=== PATIENT | male | born 1950 | race Caucasian/White ===

== ENCOUNTER 2017-08-29 23:12 | Inpatient (IN) | payer OTHER ==
[~2017-08-29] VITALS: Ht 193 cm; Wt 117.5 kg
[2017-08-29] MEDS ORDERED: MORPHINE SULFATE 2 MG/ML SYR IV STA (23:34)
[2017-08-29] MEDS ORDERED: ONDANSETRON HCL INJ 2 MG/ML VIAL IV STA (23:34)
[2017-08-29] MEDS ORDERED: SODIUM CHLORIDE 0.9% 500ML 500 ML IV ONE (23:45)
[2017-08-29 23:59] LABS: BILIRUBIN,URINE NEGATIVE (NEGATIVE); KETONES,URINE TRACE (NEGATIVE); LEUKOCYTE ESTERASE ,URINE TRACE (NEGATIVE); NITRITE,URINE NEGATIVE (NEGATIVE); URINE UROBILINOGEN 1 mg/dL (0.2 - 1)
[2017-08-30] VITALS (7 sets, daily range): BP systolic 93–119; BP diastolic 69–84
[2017-08-30] LABS: BASOPHILS # (AUTO) 0.1 (0.0-0.1); BASOPHILS % 0.4 % (0.0-1.0); EOSINOPHILS # (AUTO) 0.2 (0.0-0.4); HEMATOCRIT 47.2 % (38.2-49.6); HEMOGLOBIN 16.1 g/dL (14.0-18.0); LYMPHOCYTES # (AUTO) 1.9 (1.0-3.2); MEAN CORPUSCULAR HEMOGLOBIN 28.9 pg (28-32); MEAN CORPUSCULAR HGB CONC 34.1 g/dL (31-35); MEAN CORPUSCULAR VOLUME 84.7 fL (81-99); MONOCYTES # (AUTO) 1.3 (0.2-0.8); MONOCYTES % 8.1 % (4.4-11.3); NEUTROPHILS # (AUTO) 12.1 (2.1-6.9); PLATELET COUNT 227 x10e3/uL (140-360); RED BLOOD COUNT 5.57 x10e6/uL (4.3-5.7); RED CELL DISTRIBUTION WIDTH 14.6 % (11.7-14.4)
[2017-08-30 00:02] LABS: CLARITY,URINE CLEAR (CLEAR); COLOR,URINE YELLOW (YELLOW); PROTEIN,URINE DIPSTICK 1+ (NEGATIVE)
[2017-08-30 00:09] LABS: INR 1.05; PROTHROMBIN TIME 12.9 seconds (11.9-14.5)
[2017-08-30 00:10] LABS: PARTIAL THROMBOPLASTIN TIME 30.2 seconds (23.8-35.5)
[2017-08-30 00:11] LABS: EPITHELIAL CELLS,URINE MODERATE /LPF; MUCUS,URINE MODERATE (RARE); RBC,URINE 0-5 /HPF (0-5); WBC,URINE (MAN) 0-5 /HPF (0-5)
[2017-08-30 00:22] LABS: ALANINE AMINOTRANSFERASE 29 IU/L (0-55); ALBUMIN 4.2 g/dL (3.5-5.0); ALKALINE PHOSPHATASE 80 IU/L (40-150); AMYLASE 57 U/L (25-125); ANION GAP 13.1 mmol/L (8-16); BLOOD UREA NITROGEN 9 mg/dL (7-26); BUN/CREATININE RATIO 11 (6-25); CALCIUM 9.2 mg/dL (8.4-10.2); CARBON DIOXIDE 21 mmol/L (22-29); CHLORIDE 108 mmol/L (98-107); CREATINE KINASE 58 IU/L (30-200); EST GLOMERULAR FILTRATION RATE > 60 ML/MIN (60-); GLUCOSE 168 mg/dL (74-118); LIPASE 44 U/L (8-78); MAGNESIUM 1.8 MG/DL (1.3-2.1); POTASSIUM 4.1 mmol/L (3.5-5.1); SODIUM 138 mmol/L (136-145)
--- NOTE | 2017-08-30 00:44 | Diagnostic Imaging Report ---
CHEST SINGLE (PORTABLE), 08/29/2017 11:34 PM Technique: CHEST SINGLE (PORTABLE) Comparison: None available. Clinical history: \S\TACHYCARDIA, CP \[id number] \S\2358 Findings: See Impression Impression: Limited portable technique 1. Mildly enlarged cardiomediastinal silhouette, accentuated by portable technique. 2. No consolidation or edema. No pleural effusion or pneumothorax. Signed by: Dr Belkys Rodriguez MD on 08/30/2017 12:40 AM
[2017-08-30 00:45] LABS: THYROID STIMULATING HORMONE 1.612 uIU/mL (0.350-4.940)
[2017-08-30] MEDS ORDERED: MORPHINE SULFATE 2 MG/ML SYR IV STA (00:58)
[2017-08-30] MEDS ORDERED: METOPROLOL TARTRATE INJ 1 MG/ML VIAL IV ONE ×3 (01:00→03:30)
[2017-08-30] MEDS ORDERED: METOPROLOL TARTRATE INJ 1 MG/ML VIAL ONE (01:07)
[2017-08-30] MEDS ORDERED: METOPROLOL TARTRATE 25 MG TAB PO ONE (01:45)
--- NOTE | 2017-08-30 01:50 | Diagnostic Imaging Report ---
EXAM: CT CHEST W DATE: 08/30/2017 12:08 AM INDICATION: Tachycardia COMPARISON: None TECHNIQUE: Multidetector CT scanning of the chest was performed. Coronal and sagittal multiplanar reformations were obtained. PE protocol IV Contrast: 100 ml Isovue 370/300 FINDINGS: LUNGS AND PLEURA: Mild bibasilar opacities, likely reflect atelectasis. No effusions or pneumothorax. HEART, MEDIASTINUM, VESSELS: Normal heart size without pericardial effusion. Moderate to severe coronary artery and aortic atherosclerotic disease, with irregular noncalcified plaque of the arch (sagittal image 88). Suboptimal contrast attenuation within the pulmonary arterial system (170-180) precludes adequate assessment for exclusion of pulmonary arterial embolism. No large filling defects within the central/main pulmonary arteries. More distal segments cannot be adequately assess. UPPER ABDOMEN: Mild nodular thickening of the right adrenal gland which could reflect hyperplasia or underlying adenoma (HU 8). Incidental splenic calcification/granuloma. MUSCULOSKELETAL: Scattered degenerative changes. Findings of DISH. IMPRESSION: 1. Suboptimal contrast bolus precludes adequate evaluation for pulmonary embolism to the segmental level. No evidence of central/main pulmonary artery embolism. 2. Mild bibasilar atelectasis. Signed by: Dr Belkys Rodriguez MD on 08/30/2017 1:46 AM
[2017-08-30] MEDS: ENOXAPARIN SODIUM INJ 100 MG/ML SYR SC SCH ×2 (02:00→14:45)
[2017-08-30] MEDS ORDERED: NITROGLYCERIN 0.4 MG SUBL SL PRN (02:30)
--- OUTSIDE RECORDS SUMMARY | 2017-08-30 03:18 | XMS REPORT ---
Author Author [facility] Address Unknown Phone Unavailable Care Team Providers Care Junction Maker Name Role Phone JERAMY ALVAREZ Unavailable Unavailable Problems This patient has no known problems. Allergies, Adverse Reactions, Alerts This patient has no known allergies or adverse reactions. Medications This patient has no known medications. Results Test Description Test Time Test Comments Text Results Atomic Results Result Comments CT CHEST W [place] [address] Patient Name: WILBERT GRAHAM MR #: [id number] : 1950 Age/Sex: 67/M Req #: [id number] Adm Physician: Ordered by: JERAMY ALVAREZ MD Report #: [id number] Location: ER Room/Bed: Procedure: [id number] CT/CT CHEST W Exam Date: 08/30/17 Exam Time: 0040 REPORT STATUS: Signed EXAM: CT CHEST W DATE: 08/30/2017 12:08 AM INDICATION: Tachycardia COMPARISON: None TECHNIQUE: Multidetector CT scanning of the chest was performed. Coronal and sagittal multiplanar reformations were obtained. PE protocol IV Contrast: 100 ml Isovue 370/ 300 FINDINGS: LUNGS AND PLEURA: Mild bibasilar opacities, likely reflect atelectasis. No effusions or pneumothorax. HEART, MEDIASTINUM, VESSELS: Normal heart size without pericardial effusion. Moderate to severe coronary artery and aortic atherosclerotic disease, with irregular noncalcified plaque of the arch (sagittal image 88). Suboptimal contrast attenuation within the pulmonary arterial system (170-180) precludes adequate assessment for exclusion of pulmonary arterial embolism. No large filling defects within the central/main pulmonary arteries. More distal segments cannot be adequately assess. UPPER ABDOMEN: Mild nodular thickening of the right adrenal gland which could reflect hyperplasia or underlying adenoma (HU 8). Incidental splenic calcification/granuloma. MUSCULOSKELETAL: Scattered degenerative changes. Findings of DISH. IMPRESSION: 1. Suboptimal contrast bolus precludes adequate evaluation for pulmonary embolism to the segmental level. No evidence of central/main pulmonary artery embolism. 2. Mild bibasilar atelectasis. Signed by: Dr Landy Rodriguez MD on 08/30/2017 1:46 AM Dictated By: LANDY RODRIGUEZ MD 5 Transcribed By: EBEN on 08/30/17145 COPY TO: JERAMY ALVAREZ MD CHEST SINGLE (PORTABLE) [place] [address] Patient Name: WILBERT GRAHAM MR #: [id number] : 1950 Age/Sex: 67/M Req #: [id number] Adm Physician: Ordered by: JERAMY ALVAREZ MD Report #: [id number] Location: ER Room/Bed: Procedure: [id number] DX/CHEST SINGLE (PORTABLE) Exam Date: 08/29/17 Exam Time: 2357 REPORT STATUS: Signed CHEST SINGLE ( PORTABLE), 08/29/2017 11:34 PM Technique: CHEST SINGLE (PORTABLE) Comparison: None available. Clinical history: S TACHYCARDIA, CP S [id number] S 2357 Findings: See Impression Impression: Limited portable technique 1. Mildly enlarged cardiomediastinal silhouette, accentuated by portable technique. 2. No consolidation or edema. No pleural effusion or pneumothorax. Signed by: Dr Landy Rodriguez MD on 08/30/2017 12:40 AM Dictated By: LANDY RODRIGUEZ MD Transcribed By: EBEN on 08/30/1739 COPY TO: JERAMY ALVAREZ MD
[2017-08-30] MEDS ORDERED: SODIUM CHLORIDE 0.9% 1000ML 1,000 ML ONE (03:22)
[2017-08-30] MEDS: SODIUM CHLORIDE 0.9% 1000ML 1,000 ML IV SCH ×3 (03:23→23:03)
[2017-08-30] MEDS ORDERED: IOPAMIDOL 370 MG/ML 200 ML INFUS..BTL INJ ONE (04:14)
[2017-08-30] MEDS ORDERED: SODIUM CHLORIDE 0.9% 50ML 50 ML ONE (04:14)
[2017-08-30] MEDS: ONDANSETRON HCL INJ 2 MG/ML VIAL IV PRN ×2 (05:11→15:53)
[2017-08-30] MEDS: MORPHINE SULFATE 2 MG/ML SYR IV PRN ×2 (05:12→15:47)
[2017-08-30] MEDS: METOPROLOL TARTRATE 25 MG TAB PO SCH ×2 (08:15→21:38)
[2017-08-30] MEDS: FAMOTIDINE 20 MG/2 ML VIAL IV SCH ×2 (08:15→21:37)
[2017-08-30] MEDS: CLOPIDOGREL BISULFATE 75 MG TAB PO SCH (08:15)
[2017-08-30 08:31] LABS: BASOPHILS # (AUTO) 0.1 (0.0-0.1); BASOPHILS % 0.5 % (0.0-1.0); EOSINOPHILS # (AUTO) 0.2 (0.0-0.4); EOSINOPHILS % 1.2 % (0.0-6.0); HEMATOCRIT 43.6 % (38.2-49.6); HEMOGLOBIN 14.2 g/dL (14.0-18.0); LYMPHOCYTES # (AUTO) 2.5 (1.0-3.2); LYMPHOCYTES % 19.1 % (18.0-39.1); MEAN CORPUSCULAR HEMOGLOBIN 28.5 pg (28-32); MEAN CORPUSCULAR HGB CONC 32.6 g/dL (31-35); MEAN CORPUSCULAR VOLUME 87.4 fL (81-99); MONOCYTES # (AUTO) 1.3 (0.2-0.8); MONOCYTES % 10.1 % (4.4-11.3); NEUTROPHILS # (AUTO) 8.8 (2.1-6.9); NEUTROPHILS % 68.7 % (38.7-80.0); PLATELET COUNT 195 x10e3/uL (140-360); RED BLOOD COUNT 4.99 x10e6/uL (4.3-5.7); RED CELL DISTRIBUTION WIDTH 14.8 % (11.7-14.4)
[2017-08-30 08:48] LABS: ANION GAP 9.5 mmol/L (8-16); BLOOD UREA NITROGEN 11 mg/dL (7-26); BUN/CREATININE RATIO 13 (6-25); CALCIUM 8.5 mg/dL (8.4-10.2); CARBON DIOXIDE 27 mmol/L (22-29); CHLORIDE 104 mmol/L (98-107); CREATININE, SERUM 0.84 mg/dL (0.72-1.25); EST GLOMERULAR FILTRATION RATE > 60 ML/MIN (60-); GLUCOSE 212 mg/dL (74-118); POTASSIUM 4.5 mmol/L (3.5-5.1); SODIUM 136 mmol/L (136-145)
[2017-08-30 09:00] LABS: CREATINE KINASE 48 IU/L (30-200)
[2017-08-30] MEDS ORDERED: ASPIRIN 81 MG ENTERIC COATED PO SCH (09:00)
[2017-08-30] MEDS ORDERED: CLOPIDOGREL75 MG PO (09:46)
[2017-08-30] MEDS ORDERED: CILOSTAZOL100 MG PO (09:46)
[2017-08-30] MEDS ORDERED: METOPROLOL SUCC50 MG PO (09:46)
[2017-08-30] MEDS: DRONEDARONE 400 MG TAB PO SCH ×2 (12:00→18:16)
--- NOTE | 2017-08-30 12:13 | History and Physical ---
CHIEF COMPLAINT: Shortness of breath and rapid heart rate with back pain. HPI: Mr. Estrada is a 67-year-old male who presented with shortness of breath and chest discomfort. He was in atrial flutter in the emergency room. Patient improved after he received metoprolol in the emergency room. Patient is a regular patient of Dr. Blackman. He has been a smoker for 54 years, recently retired. He denies any chest pain, nausea, or vomiting. Now, he has severe back pain. Reports that he has a herniated disk in the back and that has caused him to have back pain for a long time. REVIEW OF SYSTEMS GENERAL: Denies any fever or chills. HEAD: Denies any head trauma. ENT: Denies any earache, nosebleed, or throat pain. CVS: Denies any chest pain. RESPIRATORY: Denies any shortness of breath. GI: Denies any nausea or vomiting. The rest of the review of systems is negative except as in HPI. PAST MEDICAL HISTORY: Hypertension, hyperlipidemia, coronary artery disease, peripheral arterial disease. PAST SURGICAL HISTORY: Total knee replacement complicated with staph infection, tonsillectomy, 2 stents in the leg, and stents in the heart. FAMILY AND SOCIAL HISTORY: He has been a smoker for 54 years 1 pack per day. He lives with his . He is retired. 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 PHYSICAL EXAM VITAL SIGNS: Temperature 97.7, pulse of 103, blood pressure 93/69, respiratory rate of 18, O2 sat 95% on 2 liters. SKIN: Warm and dry. GENERAL APPEARANCE: He is an elderly male, not in any obvious distress. He is awake and alert, following commands, responding to questions appropriately. HEENT: Head atraumatic, normocephalic. Pupils reactive. NECK: Supple. CHEST: Clear to auscultation bilaterally. Prolonged expiratory phase. HEART: S1, S2 audible. ABDOMEN: Soft, nontender, nondistended. EXTREMITIES: No pedal edema. NEUROLOGICAL: Awake and alert, oriented, following commands, responding to questions appropriately. LABS: White count of 12,000, hemoglobin 14.2, platelets 195. Chemistry; sodium 136, potassium 4.5, chloride 104, BUN 11, creatinine 0.8. Troponins have been negative. BNP was 60. CT of the chest, I have reviewed the images, not showing any focal infiltrate and reported as no pulmonary embolism. ASSESSMENT: Mr. Estrada is a 67-year-old male who presented with atrial flutter and fibrillation, apparently new onset. Patient is on anticoagulation. Cardiology is following the patient. He has been started on metoprolol. Patient is a smoker for 50 plus years. PLAN 1. Cardiology consultation. 2. Has chronic back pain. Continue the patient on morphine. May need outpatient workup for back pain. 3. Will order physical therapy evaluation and treatment once the patient is stabilized from cardiology standpoint. Job#: [id number] VIV
[2017-08-30 17:00] LABS: CREATINE KINASE 42 IU/L (30-200)
[2017-08-31] VITALS (8 sets, daily range): BP systolic 107–144; BP diastolic 66–87
[2017-08-31] MEDS: ENOXAPARIN SODIUM INJ 100 MG/ML SYR SC SCH ×2 (02:05→14:21)
[2017-08-31] MEDS ORDERED: REGADENOSON 0.4 MG/5 ML SYR IV ONE (08:29)
[2017-08-31] MEDS ORDERED: DEXTROSE 50% SYRINGE 50 ML IV PRN (10:15)
[2017-08-31] MEDS ORDERED: INSULIN LISPRO 100 UNIT/1 ML 3ML VIAL SQ SCH (11:30)
[2017-08-31] MEDS: DRONEDARONE 400 MG TAB PO SCH ×2 (11:42→16:13)
[2017-08-31] MEDS: CLOPIDOGREL BISULFATE 75 MG TAB PO SCH (11:42)
[2017-08-31] MEDS: METOPROLOL TARTRATE 25 MG TAB PO SCH (11:42)
[2017-08-31] MEDS: FAMOTIDINE 20 MG/2 ML VIAL IV SCH (11:42)
--- NOTE | 2017-08-31 11:46 | Cardiology Report ---
DATE OF STUDY: LEXISCAN NUCLEAR STRESS TEST REQUESTING PHYSICIAN: Dr. Coronel. DESCRIPTION OF PROCEDURE: After informed consent, patient was brought to the stress lab. He was given 27 mCi of technetium 99 Myoview, and myocardial perfusion SPECT images were obtained in the horizontal long and short axis and vertical long axis. The next day, patient was given brought back, was given 0.4 mg of Lexiscan over 10 seconds. Patient was given 32.8 mCi of technetium 99 Myoview intravenously and myocardial perfusion SPECT images were obtained in the horizontal long and short axis and vertical long axis. Gating images were also obtained. The stress portion was performed by Dr. Coronel. REPORT: Baseline EKG shows what appears to be atrial flutter versus sinus tachycardia at 129 beats per minute, rightward axis, normal intervals, nonspecific ST-T changes. PARAMETERS 1. Resting heart rate 109 beats per minute. 2. Maximum heart rate 133 beats per minute. 3. Resting blood pressure 113/77 mmHg. 4. Maximum blood pressure 131/78 mmHg. REASON FOR TERMINATION: Endpoint attained. INTERPRETATION 1. Negative chest pain. 2. Negative for any significant arrhythmias compared to baseline. 3. Blood pressure response consistent with Lexiscan. 4. No significant ST-T changes seen during Lexiscan compared to baseline. 5. Analysis of SPECT images reveals a small area of decreased radioisotope uptake in the inferior wall during stress, which reverses partially during rest. CONCLUSION 1. This study demonstrates a small area of inferior wall infarction and ischemia. 2. No significant regional wall motion abnormalities noted. 3. Mild diffuse hypokinesis of left ventricle is noted. 4. Overall ejection fraction is about 45%. Job#: [id number] PKU cc:Dr. Coronel
[2017-08-31 13:48] LABS: FREE T4 (FREE THYROXINE) 0.92 ng/dL (0.9-1.8); THYROID STIMULATING HORMONE 2.377 uIU/mL (0.350-4.940)
--- NOTE | 2017-08-31 14:07 | Consultation ---
DATE OF CONSULTATION: August 31, 2017 ENDOCRINE CONSULTATION This is a patient of Dr. Lawson. Thank you very much for referring this patient. This is a 67-year-old white male who is referred to me for evaluation of new-onset diabetes mellitus. Patient came to the hospital with a history of back pain. On further evaluation he was found to have atrial flutter. Patient is a chronic smoker. He recently had some knee surgery done. Patient tells me that he was told that he had mild diabetes, borderline diabetes in the past. He does have very strong family history of diabetes mellitus. Patient also has history of peripheral vascular disease and coronary artery disease, for which he has stents both in the heart and the legs. PHYSICAL EXAMINATION: GENERAL: Today the patient is alert, awake, a little bit apprehensive. He is moderately overweight. VITAL SIGNS: His heart rate is around 78, irregular. Blood pressure is 136/86 mmHg. HEENT: Examination essentially unremarkable. Thyroid is palpable. Clinically he is near euthyroid. CHEST: Bilateral vesicular breathing. No rales heard. CARDIAC: Both 1st and 2nd heart sounds. There is no 3rd or 4th heart sound. Ejection sound grade 2/6. EXTREMITIES: Patient has decreased peripheral pulses, both dorsalis pedis and the posterior tibial. During the hospital stay, his blood sugar at the time of admission was 212. His glycohemoglobin is 6.6. His TSH is 1.62. CLINICAL IMPRESSION: 1. New-onset diabetes mellitus. 2. Atrial fibrillation. 3. History of coronary artery disease. 4. Peripheral vascular disease. 5. Chronic smoker. 6. Chronic obstructive pulmonary disease. 7. Chronic backache. The patient will be started on an ADA diabetic diet. Will start him on the metformin ER 500 mg twice a day, monitor his blood sugars, and will also do a free T3, free T4 and TSH. Thanks again for referring this patient. I will be following this patient with you. Job#: [id number] TONY
[2017-08-31] MEDS: INSULIN LISPRO 100 UNIT/1 ML 3ML VIAL SQ SCH ×2 (15:42→20:19)
--- NOTE | 2017-08-31 16:00 | Consultation ---
DATE OF CONSULTATION: August 30, 2017 This 67-year-old patient presented in the emergency room complaining of chest pain, back pain, and had increased heart rate. The patient stated that he awakened this morning with a low back pain, which then radiated to the front into the xiphoid area and remained there all day long. The patient finally decided to go to the emergency room. He was found to be in rapid atrial flutter, which responded to metoprolol and medication as administered by the emergency room physician. He also was started on Lovenox 100 mg every 12 hours. The patient also stated that he noted that his heart rate being in the 130 range for the last 2 weeks. Most recently, the patient also had stent procedure and he stopped his Plavix. However, he has not consulted his rn intake, Dr. Castro was seeking any other medical attention until he developed the pain in his back and the discomfort in his lower chest area. At the moment, the patient denies any further back pain. However, he is still having difficulty taking a deep breath, which apparently also causes some chest discomfort. The patient stated his past history is having coronary stent placed about 15 years ago. He also had angioplasty and stenting of the right superficial femoral artery and the previous right knee replacement. He has history of hypertension, hyperlipidemia, and coronary artery disease. ALLERGIES: HYDROMORPHONE AND AZITHROMYCIN. FAMILY HISTORY: Noncontributory. SOCIAL HISTORY: Noncontributory. REVIEW OF SYSTEMS: Patient denies any fever. He denies any cough or sputum production. The patient denies any abdominal pain or leg pain. He denies any leg swelling. PHYSICAL EXAMINATION VITALS: Temperature 97.7. Blood pressure 110/70. NECK: Carotid pulses are present. CHEST: Clear to auscultation. CARDIOVASCULAR SYSTEM: Normal apical impulse. The rhythm is irregularly irregular. Rate of 98 per minute. There is no S3 and there is no audible rub. ABDOMEN: Soft. There is no tenderness. There are is evidence of an umbilical hernia. Bowel sounds are present. There are no masses palpated. EXTREMITIES: Pedal pulses could not be palpated bilaterally. Both feet are warm. There is evidence of chronic stasis dermatitis. However, there is no edema and Manoj sign is negative. NEUROLOGIC: Does not reveal any motor defect. The patient had CT scan, which did not show any evidence of pulmonary emboli and other than some atelectasis was pretty unremarkable. Patient's electrocardiogram shows atrial flutter with varying blocks. However, there is no evidence of myocardial infarction. The patient's white count had been elevated with 15,000 and still elevated around 12,000. Otherwise, the patient's chemistry is also unremarkable. IMPRESSIONS 1. Rapid atrial flutter. 2. Coronary artery disease with history of coronary stenting. 3. Peripheral vascular disease. 4. Chronic steatohepatitis. 5. History of hypertension, hyperlipidemia, and peripheral vascular disease. RECOMMENDATION: Agree with the present management and I would like to get an echocardiogram to see if there is any evidence of pericardial disease since the complaining of some pleuritic type of chest pain. The patient also was told by Dr. Castro that he needs stress test and we can do a pharmacological nuclear stress test since the patient is quite comfortable. Also, I would like to add Multaq 400 mg twice daily to see if we can achieve any conversion later on cardioversion or even ablation of atrial flutter can definitely be also considered to bring the patient back in sinus rhythm. At the present time, I also would continue the patient's Lovenox. Eventually, the patient should be started on either warfarin and warfarin analogue and I will continue to see the patient in the absence of Dr. Castro, who I am covering for. Job#: [id number] CQ cc:VANESSA CASTRO MD
[2017-08-31] MEDS: METFORMIN HCL 500 MG TAB PO SCH (16:13)
[2017-08-31] MEDS: RIVAROXABAN 15 MG TABLET PO SCH (16:13)
[2017-08-31] MEDS: METOPROLOL SUCCINATE 50 MG TAB XL PO SCH (16:13)
[2017-08-31] MEDS ORDERED: RIVAROXABAN 15 MG TABLET PO SCH (17:00)
[2017-08-31] MEDS: ENOXAPARIN SOD INJ 40 MG/0.4 ML SYR SC SCH (20:18)
[2017-09-01 00:46] VITALS: BP 156/97
[2017-09-01 05:04] VITALS: BP 120/65
[2017-09-01 06:31] LABS: BASOPHILS % 0.3 % (0.0-1.0); EOSINOPHILS # (AUTO) 0.2 (0.0-0.4); EOSINOPHILS % 1.6 % (0.0-6.0); HEMATOCRIT 40.4 % (38.2-49.6); HEMOGLOBIN 13.5 g/dL (14.0-18.0); LYMPHOCYTES # (AUTO) 2.1 (1.0-3.2); LYMPHOCYTES % 18.2 % (18.0-39.1); MEAN CORPUSCULAR HEMOGLOBIN 28.9 pg (28-32); MEAN CORPUSCULAR HGB CONC 33.4 g/dL (31-35); MEAN CORPUSCULAR VOLUME 86.5 fL (81-99); MONOCYTES # (AUTO) 0.9 (0.2-0.8); MONOCYTES % 8.1 % (4.4-11.3); NEUTROPHILS # (AUTO) 8.2 (2.1-6.9); NEUTROPHILS % 71.3 % (38.7-80.0); PLATELET COUNT 193 x10e3/uL (140-360); RED BLOOD COUNT 4.67 x10e6/uL (4.3-5.7); RED CELL DISTRIBUTION WIDTH 14.6 % (11.7-14.4)
[2017-09-01 06:58] LABS: ANION GAP 10.9 mmol/L (8-16); BLOOD UREA NITROGEN 11 mg/dL (7-26); BUN/CREATININE RATIO 15 (6-25); CALCIUM 8.9 mg/dL (8.4-10.2); CARBON DIOXIDE 28 mmol/L (22-29); CHLORIDE 103 mmol/L (98-107); CREATININE, SERUM 0.74 mg/dL (0.72-1.25); EST GLOMERULAR FILTRATION RATE > 60 ML/MIN (60-); GLUCOSE 131 mg/dL (74-118); POTASSIUM 3.9 mmol/L (3.5-5.1); SODIUM 138 mmol/L (136-145)
[2017-09-01] MEDS: INSULIN LISPRO 100 UNIT/1 ML 3ML VIAL SQ SCH (07:30)
[2017-09-01 08:03] VITALS: BP 126/75
[2017-09-01] MEDS: METFORMIN HCL 500 MG TAB PO SCH (08:21)
[2017-09-01] MEDS: CLOPIDOGREL BISULFATE 75 MG TAB PO SCH (08:21)
[2017-09-01] MEDS: DRONEDARONE 400 MG TAB PO SCH (08:21)
[2017-09-01] MEDS: ENOXAPARIN SOD INJ 40 MG/0.4 ML SYR SC SCH (08:22)
[2017-09-01] MEDS: METOPROLOL SUCCINATE 50 MG TAB XL PO SCH (08:22)
[2017-09-01] MEDS: RIVAROXABAN 15 MG TABLET PO SCH (08:22)
[2017-09-01 08:32] VITALS: BP 126/75
[2017-09-01 11:52] VITALS: BP 140/78
[2017-09-01] MEDS ORDERED: METFORMIN HCL500 M2 PO (12:33)
--- NOTE | 2017-09-01 13:01 | Progress Note ---
DATE: September 01, 2017 CARDIOLOGY PROGRESS NOTE Patient is doing well. Patient ambulatory. Patient in atrial fibrillation. Heart rate is about 100 to 105 per minute. Patient came for some back problem. Patient also has history of coronary artery stent placed in the past. Patient is a smoker and possible hypertension, possible hyperlipidemia. At this time, he is noted to have hyperglycemia. At this time, patient had nuclear stress test that shows inferior wall scar and ischemia with ejection fraction 45%, and patient has congestive heart failure, has got COPD, probably moderate. Patient is a smoker, too. I discussed with him patient needs to be on anticoagulants. At this time, a prescription was given for Xarelto. Continue Plavix, other medications given by Dr. Lawson. At this time, I am going to see him in the office within a week. At this time, I will start him on some other antiarrhythmic medications. Patient advised to go home and take rest, advised not to smoke, advised low-fat diet, low-salt diet, moderate activities. Patient also will be advised anticholesterol medications. I did tell the and him if any problem he can call me, but according to him he came only for the back pain. However, he has got definite other issues as described above. IMPRESSION 1. Coronary artery disease status post stent placement. 2. Possible new-onset atrial fibrillation. 3. Back problems. 4. Borderline hypertension. 5. Borderline type 2 diabetes mellitus. 6. Chronic obstructive pulmonary disease. 7. Abnormal nuclear stress test that will be discussed in detail when he comes to the office. I told him any chest pain, breathing problem, call my office. Patient was seen and followed by Dr. Lawson and also by Dr. Bruno Coronel cardiac point of view. I believe the bioinformatics software engineer, Dr. oConey, also is seeing the patient. Job#: [id number] EV
[2017-09-01] MEDS ORDERED: LIPITOR20 MG PO (13:18)
--- NOTE | 2017-09-01 14:30 | Discharge Summary ---
A patient of Dr. Blackman admitted with atrial flutter with rapid ventricular response. INCOMPLETE REPORT ANEL CONTRERAS MD Job#: [id number] EV
--- NOTE | 2017-09-01 14:57 | Discharge Summary ---
A charming, but unfortunate 67-year-old gentleman, recently retired, admitted with shortness of breath and chest discomfort. He was found to be in atrial fibrillation. Low cardiac output was felt to be causing his lactic acidosis. Urinalysis revealed no evidence of white cells. Urine culture was positive. This was felt to be a contaminant. The patient has a history of smoking, one pack a day for 54 years. He drinks a beer a day. He has had knee replacement complicated by Staph. He has had coronary artery disease with stents in the heart, stents in the legs. He has recently stopped his Bactrim. He underwent a cardiac stress test that revealed an area of small inferior wall infarct and ischemia. Ejection fraction was moderately due to 45%. He was seen by Dr. Cooney because of elevation of . Glucose on admission was 200. Hemoglobin A1c was normal. White count fell spontaneously from 15.54 to 11.57. He did not wish to take any antibiotic in due to his lack of symptoms and presumed contaminated urine. He is discharged to be followed by Dr. Blackman as an outpatient. He is to continue Plavix, , metformin 500 b.i.d. and metoprolol. He will also follow up with Dr. Cooney as well as Dr. Blackman. Will add a statin to his regimen. He is, of course, on anticoagulants. Job#: [id number]
[2017-09-01] MEDS ORDERED: ATORVASTATIN 20 MG TAB PO SCH (21:00)
== END 2017-09-01 14:10 | disposition home or self-care (01) | DRG 309 ==
LOC: ER 23:12 → MED/SURG2 08-30 03:15
PROVIDERS: ADMIT Internal Medicine Pulmonary Disease; ATTEND Internal Medicine Pulmonary Disease
DX: I48.92 Unspecified atrial flutter (principal); E87.2 Acidosis; K75.81 Nonalcoholic steatohepatitis (NASH); I11.0 Hypertensive heart disease with heart failure; I50.9 Heart failure, unspecified; J44.9 Chronic obstructive pulmonary disease, unspecified; I73.9 Peripheral vascular disease, unspecified; I48.91 Unspecified atrial fibrillation; E11.65 Type 2 diabetes mellitus with hyperglycemia; I25.10 Atherosclerotic heart disease of native coronary artery without angina pectoris; Z95.5 Presence of coronary angioplasty implant and graft; Z95.820 Peripheral vascular angioplasty status with implants and grafts; M54.9 Dorsalgia, unspecified; G89.29 Other chronic pain; I87.2 Venous insufficiency (chronic) (peripheral); Z79.02 Long term (current) use of antithrombotics/antiplatelets; Z88.5 Allergy status to narcotic agent; Z88.1 Allergy status to other antibiotic agents
CPT/HCPCS: 36415; 71045; 71260; 78452; 80048; 80053; 80061; 81001; 82044; 82150; 82550; 82553; 82948; 83036; 83605; 83690; 83735; 83880; 84439; 84443; 84481; 84484; 85025; 85379; 85610; 85730; 87040; 87086; 87186; 93005; 93017; 93306; 94640; 96360; 96374; 99284; A9502; J1650; J2270; J2405; J7030; J7040; Q9967

== ENCOUNTER 2019-09-26 20:29 | Emergency (ER) | payer MEDICARE, OTHER ==
[~2019-09-26] VITALS: Ht 193 cm; Wt 127.0 kg
[~2019-09-26 20:29] MED LIST: CILOSTAZOL100 MG PO; CLOPIDOGREL75 MG PO; LIPITOR20 MG PO; METFORMIN HCL500 M2 PO; METOPROLOL SUCC50 MG PO
--- OUTSIDE RECORDS SUMMARY | 2019-09-26 20:34 | XMS REPORT | Summary of Care ---
Author Author [facility]ANCISCO J NORRIS N.P[facility] Unknown Address Unknown Phone Unavailable Care Team Providers Care Mortgage Branch Manager Name Role Phone FRANCISCO J NORRIS N.P. Unavailable Unavailable GLORIA BULL, VANESSA Patel Unavailable Unavailable IVONNE RODRIGUEZ DO Unavailable Unavailable PRAVEEN MERA, HONEY Unavailable Unavailable Unavailable Unavailable Functional Status Name Dates Details Functional status health issues are not documented Status: Name Dates Details Cognitive status health issues are not documented Status: Problems Name Dates Details Knee pain, right (719.46, M25.561) Status: Active Pain from implanted hardware, initial encounter (996.70, T85.848A) Status: Active Status post right knee replacement (V43.65, Z96.651) Status: Active Medications Name Dates Details Iron TABS Active Folic Acid TABS * Refills: 0 Active Clopidogrel Bisulfate 75 MG Oral Tablet * Refills: 0 Active Metoprolol Tartrate 25 MG Oral Tablet * Refills: 0 Active Amiodarone HCl - 200 MG Oral Tablet * Refills: 0 Active Cilostazol 50 MG Oral Tablet * Refills: 0 Active metFORMIN HCl - 1000 MG Oral Tablet * Refills: 0 Active Aleve 220 MG Oral Capsule * Refills: 0 Active Allergies and Adverse Reactions Name Dates Details Dilaudid-HP SOLN (Allergy) Status: Active Past Medical History Name Dates Details History of back pain (V13.59, Z87.39) Status: Resolved History of diabetes mellitus (V12.29, Z86.39) Status: Resolved History of hypertension (V12.59, Z86.79) Status: Resolved History of staphylococcal infection (V12.09, Z86.19) Status: Resolved Procedures Procedure Dates Details NM Bone scan 3 phase 92336 Date: 25-Apr-2019 History of Knee replacement Completed History of Knee surgery Completed Immunization Name Dates Details Immunizations not documented Family History Name Dates Details Family history of diabetes mellitus (V18.0, Z83.3) Comments: Family History Status: Active Family history of Heart trouble (429.9, I51.9) Comments: Family History Status: Active Family history of hypertension (V17.49, Z82.49) Comments: Family History Status: Active Family history of arthritis (V17.7, Z82.61) Comments: Family History Status: Active Family history of malignant neoplasm (V16.9, Z80.9) Comments: Family History Status: Active Social History Name Dates Details Unknown if ever smoked Vital Signs Date Test Result Details 0-[id number]-682740:47 BP Systolic 136 mm[Hg] Status: BP Diastolic 86 mm[Hg] Status: Heart Rate 91 /min Status: Weight 280 lb Status: Results Date Description Value Details 6-Flk-744367:19 [U] XRAY KNEE 3 VWS RIGHT 74904 XR KNEE 3 VWS RIGHT Images acquired, not reported on this accession number. Plan of Care Name Dates Details Planned Observations Planned Goals not documented Planned Encounters Appointment; HONEY MORTON M.D. On: 27-Jun-2019 14:00 Interventions Provided Labs/Procedures/Imaging* NM Bone scan 3 phase 92841; To Be Done: 25 Apr 2019 * [U] XRAY KNEE 3 VWS RIGHT 25689; Done: 25 Apr 2019 Plan* Patient Education/Instructions: * Patient education and reassurance was provided for better understanding of the diagnosis and treatment plan. An opportunity to ask questions was provided. * Patient/caregiver was instructed to contact the office or emergency room for worsening pain, swelling, and/or any concerns. Understanding was acknowledged. * Instructions to keep site iced and elevated were explained in detail. Instructions to contact the office or emergency room for worsening pain, swelling, and/or any concerns were provided. Understanding was acknowledged. * Instruction to rest and refrain from vigorous or strenuous activity was given. Understanding was acknowledged. * X-ray images/reports were reviewed. Findings were discussed in detail. * Orders: * Physical Therapy * Follow Up: * Return to the clinic in 6 weeks or as needed. * Will do bone scan to evaluate for loosening and PT to strengthen his leg. Instructions Name Dates Details Instructions not documented Encounters Appointment; FRANCISCO J NORRIS NP Encounter Diagnosis: Problem not documented On: 25-Apr-2019 14:15
[2019-09-26] MEDS ORDERED: AUGMENTIN 500-1 EACH PO (20:52)
[2019-09-26] MEDS ORDERED: NEOMYCIN/POLYMYX/BACITR OINT 0.9 GM PKT ONE (20:56)
== END 2019-09-26 21:14 | disposition home or self-care (01) ==
LOC: FSED 20:29
DX: S60.571A Other superficial bite of hand of right hand, initial encounter (principal); W54.0XXA Bitten by dog, initial encounter; Y92.008 Other place in unspecified non-institutional (private) residence as the place of occurrence of the external cause; F17.210 Nicotine dependence, cigarettes, uncomplicated
CPT/HCPCS: 99283

== ENCOUNTER → 2022-07-29 | Day surgery (SDC) | payer MEDICARE ==
[~2022-07-29] MED LIST changes: +ACETAMINOPHEN-1 EAC4 PO; +AMIODARONE HCL200 MG PO; +AUGMENTIN 500-1 EACH PO; +BUPIVACAINE HCL 0.5% 10ML MPF VIAL INJ ONE; +DEXAMETHASONE SOD PHOS INJ 4 MG/ML SDV ONE; +ELIQUIS5 MG PO; +EPHEDRINE SULFATE INJ 50 MG/ML VIAL ONE; +FENTANYL CITRATE/PF 100MCG/2 ML INJ ONE; +LIDOCAINE HCL 0.5% LOCAL INJ 50 ML VIAL INJ ONE; +LIDOCAINE HCL 2% LOCAL INJ 5 ML SDV VIAL INJ ONE; +LISINOPRIL10 MG PO; +MIDAZOLAM HCL 2 MG/2 ML VIAL ONE; +MINI PRENATAL1 EACH; +MUPIROCIN 2% OINT 22 GM TUBE ONE; +ONDANSETRON HCL INJ 2MG/ML 2ML 2 MG/ML VIAL ONE; +PHENYLEPHRINE HCL 1% 10 MG/ML VIAL ONE; +POVIDONE IODINE 0.05% 0.05 % ML PO ONE; +PROPOFOL IV EMULSION 10 MG/ML 20 ML VIAL ONE; +SEVOFLURANE INHAL SOLN 250 ML PEN BTL ONE; +SODIUM CHLORIDE 0.9% 100 ML ONE
[2022-07-29 08:45] VITALS: BP 128/70
== END | disposition home or self-care (01) ==
LOC: OR 06:42
PROVIDERS: ATTEND Plastic Surgery
DX: M79.89 Other specified soft tissue disorders (principal); L72.8 Other follicular cysts of the skin and subcutaneous tissue; I10 Essential (primary) hypertension; E11.9 Type 2 diabetes mellitus without complications; H54.7 Unspecified visual loss; F17.210 Nicotine dependence, cigarettes, uncomplicated; Z88.6 Allergy status to analgesic agent; Z88.1 Allergy status to other antibiotic agents; Z79.02 Long term (current) use of antithrombotics/antiplatelets; Z79.84 Long term (current) use of oral hypoglycemic drugs; Z79.899 Other long term (current) drug therapy; Z95.1 Presence of aortocoronary bypass graft; Z86.73 Personal history of transient ischemic attack (TIA), and cerebral infarction without residual deficits
CPT/HCPCS: 26113; 36415; 71046; 82948; 88304; J0690; J1100; J2001; J2250; J2370; J2405; J2704; J3010; J7050